=== PATIENT | male | born 1945 | race African-American/Black ===

== ENCOUNTER 2022-03-31 06:56 | Inpatient (IN) ==
[2022-03-31 07:32] LABS: Basophils % 0.3 % (0.0-0.8); Eosinophils % 0.3 % (0.00-10.9); Hematocrit 33.2 VOL% (42.0-52.0); Hemoglobin 11.6 GM/DL (14.0-18.0); Immature Granulocytes % 0.7 %; Immature Granulocytes Absolute 0.06 #; Lymphocytes % 10.7 % (21.2-54.2); Mean Corpuscular HGB Conc 34.9 GM/DL (32-36); Mean Corpuscular Volume 94.1 FL (87-102); Mean Platelet Volume 9.9 FL (9.6-12.0); Monocytes # 0.9 10*3/uL (0.11-0.8); Monocytes % 9.8 % (1.7-12.7); Neutrophils % 78.2 % (38.7-73.9); Platelet Count 295 T/CUMM (130-400); Red Blood Count 3.53 MC/CUMM (3.8-5.5); Red Cell Distribution Width 14.6 % (9.3-17.3); White Blood Count 9.2 T/CUMM (4-12)
[2022-03-31 07:55] LABS: Albumin 2.7 G/DL (3.4-5.0); Bilirubin,Total 0.7 MG/DL (0.20-1.00); Osmolality,Calculated 251.8 MOS/KG (273-304); Potassium 4.3 MMOL/L (3.5-5.1)
[2022-03-31 08:10] LABS: Hyaline Casts,Urine 3 /LPF (0-3); Mucus,Urine Occasional /LPF (Occasional); RBC,Urine 1 /HPF (0-4); Squamous Epithelial Cell,Urine Occasional /HPF (0-10)
[2022-03-31 08:11] LABS: Bilirubin,Urine Negative (Negative); Blood, Urine Trace mg/dL (Negative); Glucose,Urine (UA) Negative (Negative); Ketones,Urine Negative (Negative); Nitrite,Urine Negative (Negative); Protein,Urine Negative (Negative); Urine Appearance Clear (Clear); Urine Color Yellow (Yellow)
[2022-03-31] MEDS ORDERED: PIPERACILLIN/TAZOBACTAM 3,375 MG in SODIUM CHLORIDE 0.9% 100 ML IV STA (08:28)
[2022-03-31 08:41] LABS: Barbiturates Screen,Urine Negative (Negative); Benzodiazepines Screen,Urine Negative (Negative); Cannabinoid Screen,Urine Negative (Negative); Opiate Screen,Urine Negative (Negative); Phencyclidine Screen,Urine Negative (Negative)
[2022-03-31 08:55] LABS: Arterial Base Excess iSTAT 5 MMOL/L (-2.5-2.5); Arterial Bicarbonate iSTAT 28.1 MMOL/L (20-26); Arterial O2 Saturation iSTAT 96 % (95-100); Arterial PCO2 iSTAT 36 MM HG (35-48); Arterial PO2 iSTAT 74 MM HG (80-95); Arterial Total CO2 iSTAT 29 MMO/L (23-27); Arterial pH iSTAT 7.495 (7.35-7.45)
[2022-03-31] MEDS ORDERED: ACETAMINOPHEN 325 MG TABLET PO PRN (09:26)
[2022-03-31] MEDS ORDERED: ALBUTEROL 2.5 MG/3 ML NEB RESP TX PRN ×2 (09:26)
[2022-03-31] MEDS ORDERED: DOCUSATE SODIUM 100 MG CAPSULE PO PRN (09:26)
[2022-03-31] MEDS ORDERED: ONDANSETRON 4 MG/2 ML VIAL IV PRN (09:26)
[2022-03-31] MEDS ORDERED: methylPREDNISolone SOD SUC 125 MG/2 ML VIAL IV STA (09:33)
[2022-03-31] MEDS: SODIUM CHLORIDE 0.9% 1,000 ML IV SCH ×2 (10:30→20:41)
[2022-03-31] MEDS: HYDROCORTISONE 100 MG VIAL IV SCH ×2 (15:01→22:36)
[2022-03-31 15:11] LABS: Calcium 8.9 MG/DL (8.5-10.1); Osmolality,Calculated 250.8 MOS/KG (273-304); Potassium 5.4 MMOL/L (3.5-5.1)
[2022-03-31] MEDS ORDERED: methylPREDNISolone SOD SUC 40 MG/1 ML VIAL IV SCH (17:00)
[2022-03-31] MEDS: PIPERACILLIN/TAZOBACTAM 3,375 MG in SODIUM CHLORIDE 0.9% 100 ML IV SCH (18:32)
[2022-03-31 18:34] LABS: Calcium 9.3 MG/DL (8.5-10.1); Osmolality,Calculated 258.2 MOS/KG (273-304); Potassium 4.3 MMOL/L (3.5-5.1)
[2022-03-31 20:29] LABS: Calcium 9.3 MG/DL (8.5-10.1); Osmolality,Calculated 261.9 MOS/KG (273-304); Potassium 4.3 MMOL/L (3.5-5.1)
[2022-03-31] MEDS: buPROPion 75 MG TABLET PO SCH (20:42)
[2022-04-01] MEDS: PIPERACILLIN/TAZOBACTAM 3,375 MG in SODIUM CHLORIDE 0.9% 100 ML IV SCH ×3 (00:59→16:06)
[2022-04-01 04:27] LABS: Arterial Base Excess iSTAT 0 MMOL/L (-2.5-2.5); Arterial Bicarbonate iSTAT 24.1 MMOL/L (20-26); Arterial O2 Saturation iSTAT 96 % (95-100); Arterial PCO2 iSTAT 35 MM HG (35-48); Arterial PO2 iSTAT 78 MM HG (80-95); Arterial Total CO2 iSTAT 25 MMO/L (23-27); Arterial pH iSTAT 7.441 (7.35-7.45)
[2022-04-01] MEDS: SODIUM CHLORIDE 0.9% 1,000 ML IV SCH ×2 (05:11→12:52)
[2022-04-01 05:20] LABS: Basophils % 0.1 % (0.0-0.8); Hematocrit 37.8 VOL% (42.0-52.0); Hemoglobin 12.9 GM/DL (14.0-18.0); Immature Granulocytes % 0.6 %; Immature Granulocytes Absolute 0.05 #; Lymphocytes # 0.8 10*3/uL (1.4-4.0); Lymphocytes % 9.4 % (21.2-54.2); Mean Corpuscular HGB Conc 34.1 GM/DL (32-36); Mean Corpuscular Volume 96.2 FL (87-102); Mean Platelet Volume 10.1 FL (9.6-12.0); Monocytes # 0.4 10*3/uL (0.11-0.8); Monocytes % 5.3 % (1.7-12.7); Neutrophils % 84.6 % (38.7-73.9); Platelet Count 306 T/CUMM (130-400); Red Blood Count 3.93 MC/CUMM (3.8-5.5); Red Cell Distribution Width 14.9 % (9.3-17.3); White Blood Count 8.1 T/CUMM (4-12)
[2022-04-01 05:42] LABS: Albumin 2.5 G/DL (3.4-5.0); Bilirubin,Total 0.7 MG/DL (0.20-1.00); Calcium 8.9 MG/DL (8.5-10.1); Osmolality,Calculated 267.4 MOS/KG (273-304); Potassium 4.1 MMOL/L (3.5-5.1); Total Protein 7.3 G/DL (6.4-8.2)
[2022-04-01] MEDS: PANTOPRAZOLE 40 MG VIAL IV SCH (06:08)
[2022-04-01] MEDS: HYDROCORTISONE 100 MG VIAL IV SCH ×3 (06:09→23:07)
[2022-04-01 08:10] LABS: Calcium 8.9 MG/DL (8.5-10.1); Osmolality,Calculated 267.5 MOS/KG (273-304); Potassium 4.1 MMOL/L (3.5-5.1)
[2022-04-01] MEDS: TAMSULOSIN 0.4 MG CAPSULE PO SCH (09:48)
[2022-04-01] MEDS: allopurinoL 300 MG TABLET PO SCH (09:48)
[2022-04-01] MEDS: OXYBUTYNIN XL 10 MG TABLET PO SCH (09:48)
[2022-04-01] MEDS: buPROPion 75 MG TABLET PO SCH ×2 (09:48→20:46)
[2022-04-01] MEDS ORDERED: hydrALAZINE 20 MG/1 ML VIAL IV PRN (10:23)
[2022-04-01 14:18] LABS: Calcium 8.6 MG/DL (8.5-10.1); Osmolality,Calculated 272.1 MOS/KG (273-304); Potassium 3.9 MMOL/L (3.5-5.1)
[2022-04-01 20:06] LABS: Calcium 8.7 MG/DL (8.5-10.1); Potassium 3.3 MMOL/L (3.5-5.1)
[2022-04-01] MEDS: SIMVASTATIN 80 MG TABLET PO SCH (20:46)
[2022-04-01 21:46] LABS: Potassium,Urine Random 71 MMOL/L
[2022-04-01] MEDS ORDERED: POTASSIUM CHLORIDE 20 MEQ TABLET PO PRN (22:05)
[2022-04-01] MEDS: POTASSIUM CHLORIDE RIDER 10 MEQ/100 ML PREMIX IV PRN (23:56)
[2022-04-02] MEDS: POTASSIUM CHLORIDE RIDER 10 MEQ/100 ML PREMIX IV PRN ×3 (00:58→03:01)
[2022-04-02 01:12] LABS: Arterial Base Excess iSTAT -2 MMOL/L (-2.5-2.5); Arterial Bicarbonate iSTAT 21.5 MMOL/L (20-26); Arterial O2 Saturation iSTAT 95 % (95-100); Arterial PCO2 iSTAT 31 MM HG (35-48); Arterial PO2 iSTAT 72 MM HG (80-95); Arterial Total CO2 iSTAT 22 MMO/L (23-27); Arterial pH iSTAT 7.443 (7.35-7.45)
[2022-04-02] MEDS ORDERED: LORazepam 2 MG/1 ML VIAL IV ONE (02:20)
[2022-04-02] MEDS: PIPERACILLIN/TAZOBACTAM 3,375 MG in SODIUM CHLORIDE 0.9% 100 ML IV SCH ×3 (04:06→20:30)
[2022-04-02 04:35] LABS: Basophils % 0.1 % (0.0-0.8); Hematocrit 33.9 VOL% (42.0-52.0); Hemoglobin 11.2 GM/DL (14.0-18.0); Immature Granulocytes % 0.7 %; Immature Granulocytes Absolute 0.09 #; Lymphocytes # 0.5 10*3/uL (1.4-4.0); Lymphocytes % 3.8 % (21.2-54.2); Mean Corpuscular Volume 98.3 FL (87-102); Monocytes # 0.7 10*3/uL (0.11-0.8); Monocytes % 5.3 % (1.7-12.7); Neutrophils % 90.1 % (38.7-73.9); Platelet Count 303 T/CUMM (130-400); Red Blood Count 3.45 MC/CUMM (3.8-5.5); Red Cell Distribution Width 15.3 % (9.3-17.3); White Blood Count 12.7 T/CUMM (4-12)
[2022-04-02 04:46] LABS: Calcium 8.6 MG/DL (8.5-10.1); Osmolality,Calculated 276.8 MOS/KG (273-304); Potassium 3.9 MMOL/L (3.5-5.1)
[2022-04-02 05:02] LABS: Band Neutrophils 1 % (0-10); Lymphocytes 9 % (20-55); Total Cells Counted 100
[2022-04-02 05:03] LABS: Macrocytosis Slight; Ovalocytes Slight
[2022-04-02 05:04] LABS: Platelet Estimate Normal
[2022-04-02] MEDS: PANTOPRAZOLE 40 MG VIAL IV SCH (06:34)
[2022-04-02] MEDS ORDERED: PROMETHAZINE 25 MG/1 ML VIAL IM ONE (07:00)
[2022-04-02] MEDS ORDERED: MEPERIDINE 25 MG/1 ML VIAL IM ONE (07:00)
[2022-04-02] MEDS ORDERED: LIDOCAINE 2% 20 ML VIAL RESP TX ONE (07:30)
[2022-04-02] MEDS ORDERED: LIDOCAINE 1% 20 ML VIAL MISC INJ ONE (07:30)
[2022-04-02] MEDS ORDERED: LIDOCAINE 2% VISCOUS 100 ML BOTTLE SWISH/SPIT ONE (07:30)
[2022-04-02] MEDS ORDERED: MIDAZOLAM 2 MG/2 ML VIAL IV ONE (07:30)
[2022-04-02] MEDS: HYDROCORTISONE 100 MG VIAL IV SCH ×3 (09:21→22:10)
[2022-04-02 10:56] LABS: Osmolality, Serum 262 mOsm/kg (275 - 295)
[2022-04-02 11:21] LABS: Osmolality, Urine 570 mOsm/kg (150 - 1150)
[2022-04-02] MEDS: TAMSULOSIN 0.4 MG CAPSULE PO SCH (17:05)
[2022-04-02] MEDS: buPROPion 75 MG TABLET PO SCH ×2 (17:05→21:04)
[2022-04-02] MEDS: OXYBUTYNIN XL 10 MG TABLET PO SCH (17:05)
[2022-04-02] MEDS: allopurinoL 300 MG TABLET PO SCH (17:06)
[2022-04-02] MEDS ORDERED: LACTATED RINGERS 1,000 ML IV ONE (17:44)
[2022-04-02] MEDS: METOPROLOL TARTRATE 5 MG/5 ML VIAL IV PRN (20:13)
[2022-04-02] MEDS: LACTATED RINGERS 1,000 ML IV SCH (20:30)
[2022-04-02] MEDS: SIMVASTATIN 80 MG TABLET PO SCH (21:04)
[2022-04-03] MEDS: PIPERACILLIN/TAZOBACTAM 3,375 MG in SODIUM CHLORIDE 0.9% 100 ML IV SCH ×3 (03:15→20:12)
[2022-04-03 03:44] LABS: Basophils % 0.1 % (0.0-0.8); Hemoglobin 12.8 GM/DL (14.0-18.0); Immature Granulocytes % 0.5 %; Immature Granulocytes Absolute 0.06 #; Lymphocytes # 0.7 10*3/uL (1.4-4.0); Mean Corpuscular HGB Conc 33.7 GM/DL (32-36); Mean Corpuscular Volume 97.2 FL (87-102); Monocytes # 0.7 10*3/uL (0.11-0.8); Monocytes % 5.6 % (1.7-12.7); Neutrophils % 88.8 % (38.7-73.9); Platelet Count 230 T/CUMM (130-400); Red Blood Count 3.91 MC/CUMM (3.8-5.5); Red Cell Distribution Width 15.5 % (9.3-17.3); White Blood Count 12.9 T/CUMM (4-12)
[2022-04-03 04:03] LABS: Calcium 8.7 MG/DL (8.5-10.1); Potassium 4.3 MMOL/L (3.5-5.1)
[2022-04-03] MEDS: PANTOPRAZOLE 40 MG VIAL IV SCH (05:55)
[2022-04-03] MEDS: LACTATED RINGERS 1,000 ML IV SCH ×2 (05:55→18:07)
[2022-04-03] MEDS: HYDROCORTISONE 100 MG VIAL IV SCH (05:56)
[2022-04-03] MEDS: allopurinoL 300 MG TABLET PO SCH (10:12)
[2022-04-03] MEDS: OXYBUTYNIN XL 10 MG TABLET PO SCH (10:12)
[2022-04-03] MEDS: TAMSULOSIN 0.4 MG CAPSULE PO SCH (10:12)
[2022-04-03] MEDS: buPROPion 75 MG TABLET PO SCH (10:14)
[2022-04-03] MEDS: DILTIAZEM 30 MG TABLET PO SCH ×2 (19:28→20:46)
[2022-04-03] MEDS: METOPROLOL TARTRATE 5 MG/5 ML VIAL IV PRN (20:13)
[2022-04-03] MEDS: SIMVASTATIN 80 MG TABLET PO SCH (20:46)
[2022-04-04] MEDS: METOPROLOL TARTRATE 5 MG/5 ML VIAL IV PRN (01:07)
[2022-04-04 02:00] LABS: Arterial Base Excess iSTAT 0 MMOL/L (-2.5-2.5); Arterial O2 Saturation iSTAT 96 % (95-100); Arterial PCO2 iSTAT 25 MM HG (35-48); Arterial PO2 iSTAT 69 MM HG (80-95); Arterial Total CO2 iSTAT 22 MMO/L (23-27)
[2022-04-04] MEDS: MORPHINE 2 MG/1 ML SYRINGE IV PRN ×2 (02:17→19:04)
[2022-04-04] MEDS: LACTATED RINGERS 1,000 ML IV SCH (03:23)
[2022-04-04 06:34] LABS: Hematocrit 34.5 VOL% (42.0-52.0); Hemoglobin 11.4 GM/DL (14.0-18.0); Immature Granulocytes % 0.7 %; Immature Granulocytes Absolute 0.09 #; Lymphocytes # 0.4 10*3/uL (1.4-4.0); Lymphocytes % 3.2 % (21.2-54.2); Mean Platelet Volume 9.8 FL (9.6-12.0); Monocytes # 0.9 10*3/uL (0.11-0.8); Monocytes % 7.2 % (1.7-12.7); NRBC # 0.02 10*3/uL; Neutrophils % 88.9 % (38.7-73.9); Platelet Count 281 T/CUMM (130-400); Red Blood Count 3.45 MC/CUMM (3.8-5.5); Red Cell Distribution Width 15.9 % (9.3-17.3); White Blood Count 12.9 T/CUMM (4-12)
[2022-04-04 06:54] LABS: Albumin 2.2 G/DL (3.4-5.0); Bilirubin,Total 0.7 MG/DL (0.20-1.00); Osmolality,Calculated 286.5 MOS/KG (273-304); Potassium 4.1 MMOL/L (3.5-5.1); Total Protein 6.7 G/DL (6.4-8.2)
[2022-04-04] MEDS: PANTOPRAZOLE 40 MG VIAL IV SCH (06:54)
[2022-04-04 07:01] LABS: Lymphocytes 6 % (20-55); Polychromasia Slight; Total Cells Counted 100
[2022-04-04 07:02] LABS: Macrocytosis Slight; Ovalocytes Slight
[2022-04-04 07:03] LABS: Platelet Estimate Normal
[2022-04-04] MEDS ORDERED: FUROSEMIDE 40 MG/4 ML VIAL IV ONE (08:00)
[2022-04-04] MEDS: OXYBUTYNIN XL 10 MG TABLET PO SCH (09:18)
[2022-04-04] MEDS: DILTIAZEM 30 MG TABLET PO SCH ×3 (09:18→20:39)
[2022-04-04] MEDS: PIPERACILLIN/TAZOBACTAM 3,375 MG in SODIUM CHLORIDE 0.9% 100 ML IV SCH (09:19)
[2022-04-04] MEDS: allopurinoL 300 MG TABLET PO SCH (09:47)
[2022-04-04] MEDS: TAMSULOSIN 0.4 MG CAPSULE PO SCH (09:47)
[2022-04-04] MEDS: ACETYLCYSTEINE 20% 800 MG/4 ML VIAL RESP TX SCH ×2 (14:13→23:36)
[2022-04-04] MEDS: ALBUTEROL/IPRATROPIUM 3 ML NEB RESP TX SCH ×3 (14:13→23:36)
[2022-04-04] MEDS ORDERED: DEXAMETHASONE INJ 4 MG in SODIUM CHLORIDE 0.9% 50 ML IV SCH (14:30)
[2022-04-04] MEDS: DEXAMETHASONE 4 MG/1 ML VIAL IV SCH ×2 (15:17→23:02)
[2022-04-04] MEDS: FUROSEMIDE 40 MG/4 ML VIAL IV SCH (20:39)
[2022-04-04] MEDS: SIMVASTATIN 80 MG TABLET PO SCH (20:39)
[2022-04-05] MEDS: ALBUTEROL/IPRATROPIUM 3 ML NEB RESP TX SCH ×6 (03:24→23:20)
[2022-04-05 05:01] LABS: Hematocrit 35.2 VOL% (42.0-52.0); Hemoglobin 11.8 GM/DL (14.0-18.0); Immature Granulocytes % 0.7 %; Immature Granulocytes Absolute 0.08 #; Lymphocytes # 0.3 10*3/uL (1.4-4.0); Mean Corpuscular HGB Conc 33.5 GM/DL (32-36); Mean Corpuscular Volume 97.5 FL (87-102); Mean Platelet Volume 10.2 FL (9.6-12.0); Monocytes # 0.5 10*3/uL (0.11-0.8); Monocytes % 4.4 % (1.7-12.7); Neutrophils % 91.9 % (38.7-73.9); Platelet Count 231 T/CUMM (130-400); Red Blood Count 3.61 MC/CUMM (3.8-5.5); Red Cell Distribution Width 15.4 % (9.3-17.3); White Blood Count 10.8 T/CUMM (4-12)
[2022-04-05 05:19] LABS: Calcium 8.7 MG/DL (8.5-10.1); Osmolality,Calculated 278.8 MOS/KG (273-304); Potassium 3.7 MMOL/L (3.5-5.1)
[2022-04-05 05:26] LABS: Lymphocytes 5 % (20-55); Platelet Estimate Normal; Total Cells Counted 100
[2022-04-05] MEDS: DEXAMETHASONE 4 MG/1 ML VIAL IV SCH ×3 (06:14→23:52)
[2022-04-05] MEDS: PANTOPRAZOLE 40 MG VIAL IV SCH (06:14)
[2022-04-05] MEDS: ACETYLCYSTEINE 20% 800 MG/4 ML VIAL RESP TX SCH ×3 (07:00→23:21)
[2022-04-05] MEDS: allopurinoL 300 MG TABLET PO SCH (09:58)
[2022-04-05] MEDS: TAMSULOSIN 0.4 MG CAPSULE PO SCH (09:58)
[2022-04-05] MEDS: DILTIAZEM 30 MG TABLET PO SCH ×3 (09:59→20:10)
[2022-04-05] MEDS: OXYBUTYNIN XL 10 MG TABLET PO SCH (10:01)
[2022-04-05] MEDS: FUROSEMIDE 40 MG/4 ML VIAL IV SCH ×2 (10:04→20:10)
[2022-04-05] MEDS: SIMVASTATIN 80 MG TABLET PO SCH (20:10)
[2022-04-05] MEDS: POTASSIUM CHLORIDE RIDER 10 MEQ/100 ML PREMIX IV PRN (21:05)
[2022-04-06] MEDS: POTASSIUM CHLORIDE RIDER 10 MEQ/100 ML PREMIX IV PRN (00:27)
[2022-04-06] MEDS: ALBUTEROL/IPRATROPIUM 3 ML NEB RESP TX SCH ×6 (03:49→23:55)
[2022-04-06 06:08] LABS: Basophils % 0.1 % (0.0-0.8); Hematocrit 36.5 VOL% (42.0-52.0); Immature Granulocytes % 0.5 %; Immature Granulocytes Absolute 0.07 #; Lymphocytes # 0.4 10*3/uL (1.4-4.0); Lymphocytes % 3.2 % (21.2-54.2); Mean Corpuscular HGB Conc 32.9 GM/DL (32-36); Mean Corpuscular Volume 99.2 FL (87-102); Monocytes # 0.6 10*3/uL (0.11-0.8); Monocytes % 4.6 % (1.7-12.7); Neutrophils % 91.6 % (38.7-73.9); Platelet Count 194 T/CUMM (130-400); Red Blood Count 3.68 MC/CUMM (3.8-5.5); Red Cell Distribution Width 15.7 % (9.3-17.3)
[2022-04-06] MEDS: DEXAMETHASONE 4 MG/1 ML VIAL IV SCH ×3 (06:08→23:08)
[2022-04-06] MEDS: PANTOPRAZOLE 40 MG VIAL IV SCH (06:11)
[2022-04-06 06:39] LABS: Calcium 8.7 MG/DL (8.5-10.1); Osmolality,Calculated 277.8 MOS/KG (273-304); Potassium 3.8 MMOL/L (3.5-5.1)
[2022-04-06 06:41] LABS: Band Neutrophils 4 % (0-10); Lymphocytes 3 % (20-55); Platelet Estimate Normal; Total Cells Counted 100
[2022-04-06 06:42] LABS: Anisocytosis 1+; Burr Cells Few; Macrocytosis Slight
[2022-04-06] MEDS: ACETYLCYSTEINE 20% 800 MG/4 ML VIAL RESP TX SCH ×3 (06:56→23:55)
[2022-04-06] MEDS: TAMSULOSIN 0.4 MG CAPSULE PO SCH (08:55)
[2022-04-06] MEDS: OXYBUTYNIN XL 10 MG TABLET PO SCH (08:56)
[2022-04-06] MEDS: FUROSEMIDE 40 MG/4 ML VIAL IV SCH (08:56)
[2022-04-06] MEDS: ASPIRIN CHEW 81 MG TABLET PO SCH (08:56)
[2022-04-06] MEDS: allopurinoL 300 MG TABLET PO SCH (08:56)
[2022-04-06] MEDS: DILTIAZEM 30 MG TABLET PO SCH (08:56)
[2022-04-06] MEDS ORDERED: LORazepam 2 MG/1 ML VIAL IV PRN (10:43)
[2022-04-06] MEDS: LACTATED RINGERS 1,000 ML IV SCH (12:30)
[2022-04-06] MEDS: DILTIAZEM 60 MG TABLET PO SCH ×2 (14:31→21:15)
[2022-04-06] MEDS: MORPHINE 2 MG/1 ML SYRINGE IV PRN (21:15)
[2022-04-07] MEDS: ALBUTEROL/IPRATROPIUM 3 ML NEB RESP TX SCH ×2 (03:47→10:21)
[2022-04-07] MEDS: PANTOPRAZOLE 40 MG VIAL IV SCH (06:03)
[2022-04-07] MEDS: DEXAMETHASONE 4 MG/1 ML VIAL IV SCH (06:04)
[2022-04-07] MEDS: OXYBUTYNIN XL 10 MG TABLET PO SCH (09:27)
[2022-04-07] MEDS: ASPIRIN CHEW 81 MG TABLET PO SCH (09:27)
[2022-04-07] MEDS: DILTIAZEM 60 MG TABLET PO SCH (09:28)
[2022-04-07] MEDS: allopurinoL 300 MG TABLET PO SCH (09:28)
[2022-04-07] MEDS: TAMSULOSIN 0.4 MG CAPSULE PO SCH (09:28)
[2022-04-07] MEDS: ACETYLCYSTEINE 20% 800 MG/4 ML VIAL RESP TX SCH (10:21)
[2022-04-07 12:19] VITALS: BP 129/87
[2022-04-07] MEDS: LACTATED RINGERS 1,000 ML IV SCH (15:10)
== END 2022-04-07 14:23 | disposition hospice, home (50) | DRG 177 ==
LOC: N.ED 06:56 → SUATTDRO 09:27 → N.EDINP 09:27 → N.CC 10:29 → N.3E 04-06 15:23
PROVIDERS: ADMIT Internal Medicine; ATTEND Internal Medicine
PROC: BRONCHB (2022-04-02 07:35)